=== PATIENT | male | born 1975 | race Hispanic/Latino ===

== ENCOUNTER 2018-06-04 14:10 | Emergency (ER) | payer OTHER ==
[2018-06-04 14:29] VITALS: RESP 18; O2SAT 98; BMI 30.1
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
[2018-06-04 17:10] VITALS: BP 156/85; PULSE 82; TEMP 98.1
== END 2018-06-04 17:09 | disposition home or self-care (01) ==
LOC: C.ER 14:10
DX: S00.83XA Contusion of other part of head, initial encounter (principal); Y04.0XXA Assault by unarmed brawl or fight, initial encounter; Y92.89 Other specified places as the place of occurrence of the external cause; Y99.8 Other external cause status